=== PATIENT | female | born 1990 | race Caucasian/White ===

== ENCOUNTER 2016-09-25 08:18 | Inpatient (IN) | payer OTHER ==
[~2016-09-25] VITALS: Ht 167.6 cm; Wt 89.8 kg
[2016-09-25 14:42] LABS: *URINE HCG, QUAL NEGATIVE (NEGATIVE)
[2016-09-25 15:00] LABS: *AMPHETAMINE, URINE NEGATIVE (NEGATIVE); *BARBITURATE, URINE NEGATIVE (NEGATIVE); *CANNABINOID, URINE NEGATIVE (NEGATIVE); *COCCAINE, URINE NEGATIVE (NEGATIVE); *OPIATE, URINE NEGATIVE (NEGATIVE); *PHENCYCLIDINE SCREEN,URINE NEGATIVE (NEGATIVE)
--- NOTE | 2016-09-25 15:15 | NUR ---
PRE-ASSESSMENT: Pre-Assessment done at intake office, client is A/O x4, she presents with depressed mood, flat affect, slurred speech. T 97.8, RR 16, BP 122/81, HR 99, spO2 @ 99% on RA, Pain 0/10. She is fully ambulatory. She reports allergy to Alprazolam; Client denies any withdrawal-induced seizure. PMH: depression, anxiety, bipolar disorder, OCD, psychosis. Past surgical Hx: tummy tuck, breast augmentation Medications taken a at home Clonazepam 2mg TID PO modafinil 200mg PO. Vyvanse 100mg daily PO Adderall 30mg BID PO Radha 90-20 mcg tabs PO daily Lamictal 150mg (3 tabs) PO HS Aripiprazole 30mg PO HS PCP Roberta Hardeep Client smokes 1 1/2 pack of cigarrettes daily. Substance use: She started consuming alcohol at age 13 and increasing her intake daily, she reports consuming either 6 pack of beer, 1 bottle of wine or 3 shots of vodka daily. Her longest period of sobriety is when she was 6 years ago. Last drink 2 mojitos and 2 (12 oz) beer 09/24/16 @ 1600. Client started using Prescribed Clonazepam 10mg PO daily for the past 6 months, last used 10mg the morning prior to admission. Prescribed Diazepam 20 mg PO daily for the past 6 months, last used 20mg in divided doses thought out the morning prior to admission. Client verbalized understanding regarding disposal of control substance, vitals Q4h and blood drawn. Client provided urine for drug and test
[2016-09-25] MEDS ORDERED: AMPH30CA3 PO (15:21)
[2016-09-25] MEDS ORDERED: ARIP30TA3 PO (15:21)
[2016-09-25] MEDS ORDERED: LISD50CA2 PO (15:21)
[2016-09-25] MEDS ORDERED: LISD70CA PO (15:21)
[2016-09-25] MEDS ORDERED: LAMO150T2 PO (15:21)
[2016-09-25] MEDS ORDERED: LEVO1TAB45 PO (15:21)
[2016-09-25] MEDS ORDERED: DEXT30TA10 PO (15:21)
[2016-09-25] MEDS ORDERED: MODA200T44 PO (15:21)
--- NOTE | 2016-09-25 15:30 | NUR ---
Admissions Note 25 year old female admitted to [facility] for withdrawal from alcohol and benzodiazepine. Client reports PMH of depression, anxiety, bipolar disorder, OCD, psychosis. Past surgical Hx: tummy tuck(2015), breast augmentation(2015) Client is oriented to unit, educated about protocols and how to work TV and call light in her room. Weight: 198 pounds. Height: 5'6" CIWA : 2 Client is mild intoxicated, skin warm and clammy, skin intact with well healed horizontal scar on bilateral breast and transverse scar @ lower abdomen, small scab on dorsal R hand between thumb and index finger. Bilateral lung clear on auscultation, abdomen soft, non-tender, no edema noted. Clients voice is soft, slurred, she avoids eye contact. Client reports allery to alprazolam. Regular diet ordered. Full code status ordered. Client denies any history of seizures. LBM was 09/25/16, small, brown, soft. She refuses PNA vaccine at this time, stating she is afraid she might get sick because of it. She gives verbal consent for HIV. Client states that she lives with her and three kids. She reports no prior treatments, she has tried to maintain sober at home, but due to shakiness, jittery, irritability and sweats she has not been able to succeed, her longest period of sobriety is she she waas [address] Damon notified of admission. All safety measures instituted. Seizure precaution. Call light within reach. Will continue to monitor.
[2016-09-25] MEDS ORDERED: MIRALAX 17 GM POWD.PACK PO PRN (17:30)
[2016-09-25] MEDS ORDERED: DICYCLOMINE HCL 20 MG TABLET PO PRN (17:30)
[2016-09-25] MEDS ORDERED: MAGNESIUM HYDROXIDE 30 ML LIQUID UDC PO PRN (17:30)
[2016-09-25] MEDS ORDERED: LORAZEPAM 2 MG/1 ML VIAL IM PRN (17:30)
[2016-09-25] MEDS ORDERED: DIAZEPAM 10 MG TABLET PO PRN ×2 (17:30)
[2016-09-25] MEDS ORDERED: MAG HYDROX/AL HYDROX/SIMETH 30 ML LIQUID UDC PO PRN (17:30)
[2016-09-25] MEDS ORDERED: ACETAMINOPHEN 325 MG TABLET PO PRN (17:30)
[2016-09-25] MEDS ORDERED: diphenhydrAMINE 50 MG CAPSULE PO PRN (17:30)
[2016-09-25] MEDS ORDERED: ONDANSETRON 4 MG/2 ML VIAL IM PRN (17:30)
[2016-09-25] MEDS ORDERED: LOPERAMIDE HCL 2 MG CAPSULE PO PRN ×2 (17:30)
[2016-09-25] MEDS ORDERED: THIAMINE HCL 200 MG/2 ML VIAL IM ONE (17:30)
[2016-09-25] MEDS ORDERED: ONDANSETRON ODT 4 MG TAB.RAPDIS SL PRN (17:30)
[2016-09-25] MEDS ORDERED: DIAZEPAM 5 MG TABLET PO PRN (17:30)
[2016-09-25 18:34] LABS: BASOPHILS # (AUTO) 0.1 K/uL (0.0-8.0); BASOPHILS % (AUTO) 0.5 % (0.0-2.0); EOSINOPHILS # (AUTO) 0.3 K/uL (0.0-0.7); EOSINOPHILS % (AUTO) 3.2 % (0.0-7.0); HEMATOCRIT 40.9 % (37-47); HEMOGLOBIN 13.8 G/DL (12.0-16.0); LYMPHOCYTES # (AUTO) 2.3 K/UL (0.8-4.8); LYMPHOCYTES % (AUTO) 21.5 % (20.5-51.5); MEAN CORPUSCULAR HEMOGLOBIN 30.7 UUG (27.0-31.0); MEAN CORPUSCULAR HGB CONC 34 g/dL (32.0-37.0); MONOCYTES # (AUTO) 0.5 K/UL (0.1-1.30); MONOCYTES % (AUTO) 4.9 % (0.0-11.0); NEUTROPHILS # (AUTO) 7.4 K/UL (1.8-8.9); NEUTROPHILS % (AUTO) 69.9 % (38.5-71.5); PLATELET COUNT (AUTO) 209 K/UL (150-450); WHITE BLOOD COUNT (AUTO) 10.6 K/UL (4.0-11.2)
[2016-09-25 18:43] LABS: ALANINE AMINOTRANSFERASE 22 U/L (14-59); ALKALINE PHOSPHATASE 68 U/L (50-136); AMYLASE 40 U/L (25-115); ASPARTATE AMINOTRANSFERASE 15 U/L (15-37); BILIRUBIN,TOTAL 0.2 mg/dL (0.2-1.0); CARBON DIOXIDE 27 mmol/L (21-32); CHLORIDE 105 mmol/L (98-107); CREATININE 0.6 mg/dL (0.6-1.3); GLUCOSE 100 mg/dL (74-106); LIPASE 128 U/L (73-393); MAGNESIUM 1.9 mg/dL (1.8-2.4); POTASSIUM 3.8 mmol/L (3.5-5.1); TOTAL PROTEIN, SERUM 6.7 g/dL (6.4-8.2); UREA NITROGEN, BLOOD 15 mg/dL (7-18)
[2016-09-25 18:49] LABS: ETHANOL < 3 MG/DL (0-0)
[2016-09-25 18:54] LABS: THYROID STIMULATING HORMONE 0.711 mIU/mL (0.358-3.740)
--- NOTE | 2016-09-25 19:18 | NUR ---
END OF SHIFT Will endorse client to incoming nurse, client is in group therapy, She is admitted for alcohol and benzodiazepine withdrawal. She has Valium PRN for CIWA 5-8 5MG q4h, CIWA 9-15 10mg Q4H, CIWA 16 > 20mg Q4H. Client continue to present with depressed mood, flat affect. She is schedule on Ativan taper 5 day to start tomorrow. She reports allergy to alprazolam, full code, regular diet. Seizure precautions. Last CIWA 3 @ 1600. on 3rd of 5 day taper, tolerating well, last COWS 4 @ 1600. Client is fully ambulatory. Client was compliant with 2/3 of group therapy. Adequate PO intake 750mL, void x 1. Call light within reach. Safety measures rendered and all needs met.
--- NOTE | 2016-09-25 20:00 | NUR ---
1999 Patient received standing in her room's doorway, talking with selected patients standing near her room, in the hallway. Patient responds to nurse's greeting and introduction with, " Hi, okay you're my nurse tonight then?" Patient's color is pink and her skin is warm, very slightly moist and intact. Patient is oriented to person, place, day, date, time and her personal situation. Patient's lung sounds are clear bilaterally though somewhat diminished and active bowel sounds are noted X 4 abdominal Quads, per auscultation. Patient states that she has eaten some of her regular diet tray and is taking fluids, " okay" with no gastric issue noted so far. Patient states that she did attend [facility] tonight for awhile, though she is feeling "anxious and a little shakey". Patient denies any pain at this time and she states that she doesn't need anything "right now", but will tell nurse, when she does need something. Patient offers no requests at this time. Vital signs are: 97.6-100-20 127/81, O2 Sat 96%, CIWA 9. Patient is cooperative, polite and verbally appropriate when interacting with nurse, however her affect is both flat and somewhat anxious. Patient was admitted today, 09/25/16 for Alcohol, Diazepam and Clonazepam withdrawal and she is currently on PRN medication, depending upon CIWA score per MD order. Patient noted to have an occasional harsh, dry cough during nurse assess. Patient states, " I don't know where that came from". Bed is locked and in lowest position, bed rails are up X q1 and call light within patient's easy reach
[2016-09-25] MEDS: LAMOTRIGINE 100 MG TABLET PO SCH (21:00)
[2016-09-25] MEDS: GABAPENTIN 300 MG CAPSULE PO SCH (21:00)
[2016-09-25] MEDS: IBUPROFEN 600 MG TABLET PO PRN (21:02)
--- NOTE | 2016-09-25 21:03 | NUR ---
PRN MEDICATIONS: Prn Valium 10 mg p.o. given for CIWA 12 ( shakes, high anxiety, sweats, body aches), Prn Motrin 600 mg p.o. given per request for c/o headache 6/10 pain scale and Prn Benadryl 50 mg p.o. per request for sleep medication.
--- NOTE | 2016-09-25 22:03 | NUR ---
REASSESSMENT PRN MEDICATIONS: Patient is sleeping soundly with eyes closed and respirations deep, regular, unlabored at 12. Patient NOT awakened for CIWA assessment at this time.
--- NOTE | 2016-09-26 04:00 | NUR ---
Patient refused to be awakened for V/S to be done at this time.
[2016-09-26] MEDS: IBUPROFEN 600 MG TABLET PO PRN ×3 (05:13→19:45)
--- NOTE | 2016-09-26 05:13 | NUR ---
PRN MEDICATIONS: Prn Motrin 600 mg p.o. given per c/o headache, 6/10 pain scale and Prn Valium 5 mg p.o. given per c/o shakes, anxiety, CIWA 5.
--- NOTE | 2016-09-26 06:13 | NUR ---
REASSESSMENT PRN MEDICATIONS: Patient is downstairs on hospital patio for smoke break. Unable to assess patient at this time.
--- NOTE | 2016-09-26 06:30 | NUR ---
0630 Patient slept a total of 5.5 hours and she had 1,420 ml p.o. total intake. Voids 2 and no stools this shift.
--- NOTE | 2016-09-26 08:07 | NUR ---
START OF SHIFT Rcvd endorsement from oncoming nurse, client is a 25 y/o female, admitted to [facility] for alcohol and benzodiazepine withdrawal. PRN Valium 10mg for CIWA 9, Valium 4mg for CIWA 5, Motrin x 2 for ZAMORA, Benadryl for inability to sleep, she slept 5.5 hrs. 5 day Ativan taper to start today @ 0900. She has Valium PRN for CIWA 5-8 5MG q4h, CIWA 9-15 10mg Q4H, CIWA 16 > 20mg Q4H. Client presents with anxious mood, flat affect. She is in room, making her bed, she is a/o x 4, she states "I have to do something I am restless." She reports allergy to alprazolam, full code, regular diet. Seizure precautions. . Client is fully ambulatory. Encourage client to increase fluids as tolerated to facilitate detox, and to attend group therapy for skills to maintain sobriety. Call light within reach. Safety measures rendered and all needs met.
[2016-09-26 08:55] VITALS: BP 123/92
[2016-09-26] MEDS ORDERED: 5 DAY TAPER OF LORAZEPAM -SERENITY PROTOCOL PO PRN (09:00)
[2016-09-26] MEDS: AMETHYST PO SCH (09:00)
[2016-09-26] MEDS ORDERED: PATIENT MAY USE OWN MED- MD OK PO SCH (09:00)
[2016-09-26] MEDS: LAMOTRIGINE 100 MG TABLET PO SCH ×2 (09:00→21:00)
[2016-09-26] MEDS ORDERED: TUBERCULIN,PURIF.PROT.DERIV. 5 TU/0.1 ML TEST ID ONE (09:00)
[2016-09-26] MEDS ORDERED: LORAZEPAM 1 MG TABLET PO SCH (09:00)
[2016-09-26] MEDS: DIAZEPAM 10 MG TABLET PO SCH ×4 (09:14→21:13)
[2016-09-26] MEDS: DOCUSATE SODIUM 250 MG CAPSULE PO SCH (09:15)
[2016-09-26] MEDS: THIAMINE HCL 100 MG TABLET PO SCH (09:15)
[2016-09-26] MEDS: GABAPENTIN 300 MG CAPSULE PO SCH ×3 (09:15→21:13)
[2016-09-26] MEDS: MULTIVITAMINS,THERAPEUTIC TABLET PO SCH (09:15)
[2016-09-26] MEDS: FOLIC ACID 1 MG TABLET PO SCH (09:16)
--- NOTE | 2016-09-26 09:20 | NUR ---
Nursing notes Client refused her control pill, stating "I have not been taking the pill for a while." She refused Lamictal 200mg stating "It was prescribed by a CHARGER TESTER and I don't trust her, so I am going to wait until a see a psychologist and then if the doctor thinks I should take it, I will." Risk/benefits discuss, but client still decline the mediations. Charge nurse made aware.
--- NOTE | 2016-09-26 12:27 | NUR ---
PRN Motrin 600mg Client reports ZAMORA all around head, tightness, pain 6/10. Encourage client to increase fluid intake as tolerated. Call light within reach.
[2016-09-26 12:30] VITALS: BP 121/68
--- NOTE | 2016-09-26 13:26 | NUR ---
Reassessment PRN Motrin 600mg Client reports relief from ZAMORA 0/10. Call light within reach.
[2016-09-26] MEDS ORDERED: KETOROLAC TROMETHAMINE 30 MG INJ IM PRN (14:00)
[2016-09-26 16:55] VITALS: BP 129/84
--- NOTE | 2016-09-26 18:56 | NUR ---
END OF SHIFT Will endorse client to incoming nurse, client is in ROOM, A/O X 4, admitted for alcohol and benzodiazepine withdrawal. She started 5 day Valium taper, tolerating well with no ASE, last CIWA 9 @ 1655. Client continue to present with depressed mood, flat affect. PRN Motrin for ZAMORA, noted effective, client refused Lamictal and control pill, Dr Damon and Dr Brody notified. She reports allergy to alprazolam, full code, regular diet. Seizure precautions. Client is fully ambulatory. Client was compliant with group therapy. Adequate PO intake 2000mL, void x 7, stool x 1. Call light within reach. Safety measures rendered and all needs met.
--- NOTE | 2016-09-26 19:46 | NUR ---
PRN Motrin and Zofran Pt reports nausea with one episode of vomiting and headache. PRN Motrin and Zofran administered.
--- NOTE | 2016-09-26 19:50 | NUR ---
START OF SHIFT Received report from day shift nurse. Pt is in her room resting. She is a 25 yo female admitted to [facility] on 09/25 for ETOH and BZD dependence. She is A&O x4 and ambulatory with a steady gait. Allergies to alprazolam, full code status, and on a regular diet. She has a PMH of depression, anxiety, OCD, psychosis, and bipolar. Past surgical history of tummy tuck and breast augmentation. On admission she reported using diazepam 20mg per day, clonazepam 10mg per day, and alcohol 6 beers or 1 bottle of wine or 3 shots of vodka per day. She started a 5 day valium taper today. Pt presents with nausea, one episode of vomiting, hand tremors, moist skin, and headache. Taper due tonight. Fall and seizure precautions in place. Bed is down with call light in reach.
[2016-09-26 20:00] VITALS: BP 120/85
--- NOTE | 2016-09-26 20:46 | NUR ---
PRN Motrin and Zofran reassessment PRN Motrin effective. Pt reports headache is relieved. PRN Zofran somewhat effective. Pt just had one more episode of vomiting. She does report that nausea is mostly relieved. Offered sips of sprite.
[2016-09-26] MEDS ORDERED: FLUOXETINE HCL 20 MG CAPSULE PO SCH (21:00)
[2016-09-26] MEDS ORDERED: ARIPIPRAZOLE 10 MG TABLET PO SCH (21:00)
[2016-09-27] VITALS: BP 102/62
[2016-09-27 04:00] VITALS: BP 114/64
--- NOTE | 2016-09-27 04:00 | NUR ---
0400 CIWA deferred CIWA ordered Q4HWA. Pt is lying in bed resting with eyes closed. Vital signs obtained.
--- NOTE | 2016-09-27 07:10 | NUR ---
END OF SHIFT Report provided to day shift nurse. Pt is lying in bed resting. She is a 25 yo female admitted to [facility] on 09/25 for ETOH and BZD dependence. She is A&O. Allergies to alprazolam, full code status, and on a regular diet. She has a PMH of depression, anxiety, OCD, psychosis, and bipolar. Past surgical history of tummy tuck and breast augmentation. On admission she reported using diazepam 20mg per day, clonazepam 10mg per day, and alcohol 6 beers or 1 bottle of wine or 3 shots of vodka per day. Pt started a 5 day valium taper on 09/26. Nausea improved. PRN Zofran and Motrin administered. Last CIWA was 3. She drank 1355 and slept for 7 hours. Fall and seizure precautions in place. Bed is down with call light in reach.
--- NOTE | 2016-09-27 07:40 | NUR ---
START OF SHIFT Rcvd endorsement from oncoming nurse, client is a 25 y/o female, admitted to [facility] for alcohol and benzodiazepine withdrawal. PRN Zofran for emesis x 2, Motrin for body aches, noted effective. Client slept 7 hrs. 5 day Valium taper (2nd day). Client presents with anxious mood, flat affect. She is walking in the hallway and request her pass to go to the patio to smoke a cigarette, Client is fully ambulatory she is a/o x 4, she states "I have to keep on moving, I feel jittery." fine tremors noted. She denies any N/V/D. She denies SI/HI. She reports allergy to alprazolam, full code, regular diet. Seizure precautions. Encourage client to increase fluids as tolerated to facilitate detox, and to attend group therapy for skills to maintain sobriety. Call light within reach. Will continue to monitor.
[2016-09-27 08:31] VITALS: BP 114/79
[2016-09-27] MEDS ORDERED: LORAZEPAM 1 MG TABLET PO SCH (09:00)
[2016-09-27] MEDS: LAMOTRIGINE 100 MG TABLET PO SCH (09:00)
[2016-09-27] MEDS: AMETHYST PO SCH (09:00)
[2016-09-27] MEDS: FOLIC ACID 1 MG TABLET PO SCH (09:41)
[2016-09-27] MEDS: DOCUSATE SODIUM 250 MG CAPSULE PO SCH (09:41)
[2016-09-27] MEDS: THIAMINE HCL 100 MG TABLET PO SCH (09:41)
[2016-09-27] MEDS: DIAZEPAM 10 MG TABLET PO SCH ×3 (09:41→21:10)
[2016-09-27] MEDS: MULTIVITAMINS,THERAPEUTIC TABLET PO SCH (09:41)
[2016-09-27] MEDS: GABAPENTIN 300 MG CAPSULE PO SCH ×3 (09:41→21:11)
--- NOTE | 2016-09-27 10:06 | NUR ---
Nursing notes Client refused Lamictal stating. "No, I want a new profile, I need a psychiatrist to tell me is okay to take the medication, otherwise I am not going to take it." Primary nurse notified Dr. Damon. Dr. Damon request primary nurse to notify Dr. Brody.
[2016-09-27 12:55] VITALS: BP 133/86
[2016-09-27 14:08] LABS: HEPATITIS B SURFACE AG Negative (Negative)
[2016-09-27] MEDS: NICOTINE POLACRILEX 4 MG GUM-PK OF TEN BC PRN ×4 (14:29→21:19)
--- NOTE | 2016-09-27 14:29 | NUR ---
PRN Nicotine 4mg gum given for cravings. Will continue to monitor.
--- NOTE | 2016-09-27 15:29 | NUR ---
Reassessment PRN Nicotine 4mg gum effective, client did not smoke cigarettes for the last hour.
--- NOTE | 2016-09-27 16:43 | NUR ---
PRN Nicotine 4mg gum given for cravings. Will continue to monitor.
[2016-09-27 16:55] VITALS: BP 138/92
--- NOTE | 2016-09-27 17:00 | NUR ---
Dr. Brody notified of client's refusal to take Abilify and Prozac last night and Lamictal this morning.
--- NOTE | 2016-09-27 17:28 | NUR ---
END OF SHIFT and Reassessment of Nicotine Gum 4mg Endorsed client to incoming nurse, client continues on 2 of 5 day Valium taper, tolerating well with no ASE. PRN Nicotine gum 4mg x 3, effective. Last CIWA 9 @ 1600. Client continues to be tachycardic, she is asymptomatic, Dr. Damon notified, NNO at this time. Client continues to present with depressed mood, flat affect, and fine tremors. She reports stomach cramps, fatigue, and restless legs. Client refused to take her psych meds, Dr. Ronn jose and Prozac, Dr. Nelson arriaga Lamictal. Client was compliant with group therapy. Adequate PO intake 2455mL, void x 4. Call light within reach. Safety measures rendered and all needs met.
--- NOTE | 2016-09-27 17:43 | NUR ---
Reassessment PRN Nicotine 4mg gum effective, client did not smoke cigarettes for the last hour.
--- NOTE | 2016-09-27 18:28 | NUR ---
PRN Nicotine 4mg gum given for cravings. Will continue to monitor.
--- NOTE | 2016-09-27 19:00 | NUR ---
START OF SHIFT NOTE Patient endorsed by tool and die technician nurse. Report received. Patient is a 25 year old female admitted to [facility] on 09/25/2016 for Benzodiazepines and Alcohol dependence, placed on 5 day Valium taper since 09/26/2016, which tolerated well without ASE. Patient remains compliant with treatment, medications, and diet regime. Patient reports Allergies to Alprazolam. Patient is on Full Code, is on Regular Diet, is on Fall and Seizures Precautions. Patient denies History of Seizures. Past Medical History: Anxiety, Depression, OCD, Psychosis, Bipolar Disorder, Substance abuse, Tobacco dependence. Surgical History: Tummy Tuck, Breast Augmentation. Patient reports substance use: Alcohol: " every day 6 (12 oz each) beer or 1 bottle wine, or 3 shots of vodka since 2004. Last used 2 mojitos/2(12 oz beer) on 09/24/2016 at 1000". Diazepam PO: "20 mg daily since 03/2016. Last used AM prior admission - throug out". Clonazepam PO: "10 mg daily since 09/25/2016 Last used AM prior admission - throug out". Patient denies Treatment History. Upon endorsement, patient is in the room. Patient is alert and oriented x4. VS WNL . Patient 's stable at this time. CIWA 8. Patient presented with anxiety, agitation, nervousness, tremors, sweats, and restlessness. Respirations unlabored and even. Lungs Sounds are clear bilaterally. Bowel Sounds active in all x4 quadrants. Last Bowel Movement was "09/27/16 at 1400". Skin is warm and dry to touch. Patient has healed scabs on dorsal Right hand and between right thumb and index. Encouraged fluids as tolerated. All needs met. Safety measures on place. Call light within reach, bed in lowest position and locked, padded rails up bilaterally rails up bilaterally. Will continue to monitor closely.
[2016-09-27 20:00] VITALS: BP 138/89
[2016-09-27] MEDS: QUETIAPINE FUMARATE 100 MG TABLET PO SCH (21:10)
--- NOTE | 2016-09-27 21:19 | NUR ---
PRN Nicotine 4mg gum given as ordered. Will continue to monitor.
[2016-09-28] VITALS: BP 110/73
[2016-09-28 04:00] VITALS: BP 100/62
[2016-09-28] MEDS: IBUPROFEN 600 MG TABLET PO PRN ×2 (04:02→12:29)
[2016-09-28] MEDS: NICOTINE POLACRILEX 4 MG GUM-PK OF TEN BC PRN ×2 (04:02→11:01)
--- NOTE | 2016-09-28 04:02 | NUR ---
PRN MOTRIN 600 MG 1TAB PO AND PRN NICOTINE 4 MG GUM ADMINISTRATION Patient c/o legs pain and asked aid Patient was assessed. Pain level "6/10" PRN Motrin 600 mg 1 tab PO administrated as ordered with full glass of water Patient tolerated well. Nicotine 4mg gum administrated for cravings as ordered. All needs met. Safety measures on place. Call light within reach, bed in lowest position and locked, padded rails up bilaterally rails up bilaterally. Will continue to monitor closely.
--- NOTE | 2016-09-28 05:02 | NUR ---
RE-ASSESSMENT Patient is sleeping. RR: 14. Respirations are unlabored and even. PRN Motrin PO and PRN Nicotine 4mg gum administrated to patient were effective. All needs met. Safety measures on place. Call light within reach, bed in lowest position and locked, padded rails up bilaterally rails up bilaterally.
--- NOTE | 2016-09-28 07:07 | NUR ---
END OF SHIFT NOTE Patient endorsed to dayshift nurse in stable condition. Report given. Patient is a 25 year old female admitted to [facility] on 09/25/2016 for Benzodiazepines and Alcohol dependence, placed on 5 day Valium taper since 09/26/2016, which tolerated well without ASE. Patient remains compliant with treatment, medications, and diet regime. Patient reports Allergies to Alprazolam. Patient is on Full Code, is on Regular Diet, is on Fall and Seizures Precautions. Patient denies History of Seizures. Past Medical History: Anxiety, Depression, OCD, Psychosis, Bipolar Disorder, Substance abuse, Tobacco dependence. Surgical History: Tummy Tuck, Breast Augmentation. Patient reports substance use: Alcohol: " every day 6 (12 oz each) beer or 1 bottle wine, or 3 shots of vodka since 2004. Last used 2 mojitos/2(12 oz beer) on 09/24/2016 at 1000". Diazepam PO: "20 mg daily since 03/2016. Last used AM prior admission - throughout". Clonazepam PO: "10 mg daily since 09/25/2016 Last used AM prior admission - throughout". Patient denies Treatment History. Upon endorsement, patient is in the room. Patient is alert and oriented x4. VS at 0400: T: 97.9; BP: 100/62; HR: 93; RR: 18; O2 SAT: 100%, pain level:"6/10". Patient 's stable during knotter hand. Respirations unlabored and even. Patient denies SOB and chest pain. Skin is warm and dry to touch. Patient has healed scabs on dorsal of right hand and between right thumb and index. Last CIWA decreased from 8 to 3 at 0400. Patient presented last night with anxiety, agitation, nervousness, tremors, sweats, and restlessness. PRN Nicotine 4mg gum for cravings and PRN Motrin 600 mg I tab PO for legs pain were effective. Patient denies SI/HI. Patient slept 7 hours 45 minutes, intake 1,355 ml, voided x2 . All needs met. Safety measures on place. Call light within reach, bed in lowest position and locked, padded rails up bilaterally rails up bilaterally.
--- NOTE | 2016-09-28 07:08 | NUR ---
Start of Shift Notes: Received patient in her room. Awake, alert and verbally responsive. Able to make needs known. Oriented x 4. Respirations even and unlabored. NO SOB noted. Skin warm and moist to touch. Appears with mild anxiety, agitation and facial flushing. Gross tremors also noted to BUE. Abdomen soft and non-distended with (+) BS in all 4 quadrants. No complains of N/V/D or constipation noted. Bladder non-distended. No complains of dysuria. Ambulatory ad enrico with steady gait. Patient is a 26 year old female admitted for ETOH and BZO dependence who was placed on a 5-day Valium taper as ordered. No adverse reactions noted. Has past medical hx of anxiety, depression, OCD, psychosis and bipolar disorder. Prior to admission, patient was using 6 (12oz) beer, 1 bottle of wine and 2 shots of vodka, 20 mg of Valium and 10 mg of Klonopin. Educated patient on her current plano of care for the day and her medication regimen. Encouraged oral fluid intake and encouraged group participation to learn new skills to prevent relapse. Will continue to monitor closely. Slept for 7 hours. Last CIWA 3.
[2016-09-28 08:00] VITALS: BP 97/63
[2016-09-28] MEDS ORDERED: LORAZEPAM 1 MG TABLET PO SCH (09:00)
[2016-09-28] MEDS: AMETHYST PO SCH (09:00)
[2016-09-28] MEDS: DIAZEPAM 5 MG TABLET PO SCH ×4 (09:07→20:37)
[2016-09-28] MEDS: GABAPENTIN 300 MG CAPSULE PO SCH ×3 (09:07→20:37)
[2016-09-28] MEDS: DOCUSATE SODIUM 250 MG CAPSULE PO SCH (09:07)
[2016-09-28] MEDS: FOLIC ACID 1 MG TABLET PO SCH (09:07)
[2016-09-28] MEDS: MULTIVITAMINS,THERAPEUTIC TABLET PO SCH (09:07)
[2016-09-28] MEDS: THIAMINE HCL 100 MG TABLET PO SCH (09:07)
--- NOTE | 2016-09-28 09:08 | NUR ---
Radha PO not administered: Radha PO refused by the patient at this time. Educated patient on the risk and benefits but patient still refused. Offered x3. Respected patient's rights. Will continue to monitor and offer support.
--- NOTE | 2016-09-28 11:01 | NUR ---
Nicotine Gum 4mg given: Patient requested for nicotine gum for smoking cessation. Smoking cessation education provided.
[2016-09-28 12:00] VITALS: BP 120/75
--- NOTE | 2016-09-28 12:29 | NUR ---
Motrin 600 mg PO given: Patient complained of 5/10 headache. Unable to be relieved with non-pharmacological interventions. Medicated patient with Motrin 600 mg PO as ordered. Will monitor for effectiveness.
--- NOTE | 2016-09-28 13:29 | NUR ---
Re-assessment: Per patient, PRN Motrin has been effective in reducing patient's headache. PL 03/23.
[2016-09-28 16:00] VITALS: BP 124/82
--- NOTE | 2016-09-28 19:02 | NUR ---
End of Shift Notes: Patient continues to be on 5-day Valium taper as ordered. Patient is tolerating the taper well. No adverse reactions noted. No delayed reactions noted. VS monitored closely q 4 hours. No signficant abnormalities noted. Withdrawal symptoms were closely monitored. Patient presented with initial CIWA 7. Patient presented with anxiety, agitation, and fine tremors. Per patient, Valium has been helping her with her withdrawal symptoms. Last CIWA 3. Refused to take Radha med in AM. Education provided. Nicotine gum given at 1101 for smoking cessation with help. Compliant with care and treatment. Able to participate in group and activities despite her withdrawal symptoms. Oral fluids encouraged. All needs met and attended. Continues to be on fall and seizure precautions. Will continue to monitor closely.
[2016-09-28 20:00] VITALS: BP 130/85
--- NOTE | 2016-09-28 20:00 | NUR ---
Start of Shift Pt is a 25 year old female admitted for ETOH/Benzo dependence, placed on 5 day Valium taper. Pt reported using Beer 6 (12 oz), 1 bottle wine or 3 shots of Vodka daily, Diazepam 20 mg/daily and Clonazepam 10gm/daily. PMH: depression, anxiety, OCD, psychosis, bipolar disorder. Past surgical Hx: tummy tuck, breast augmentation. Pt is allergic to Alprazolam, regular diet, fall/seizure precautions - no hx of seizures and full code. Upon assessment, pt presents with anxiety, reports lower back aches, skin noted with moderate sweat, respirations even/unlabored, denies SOB/chest pain, denies n/v/d, bowel sounds active x4, abdomen soft. Safety measures in place, call light within reach, side rails up x2, bed locked and in low position. Will continue to monitor.
[2016-09-28] MEDS: QUETIAPINE FUMARATE 100 MG TABLET PO SCH (20:38)
[2016-09-29] VITALS: BP 107/65
--- NOTE | 2016-09-29 | NUR ---
Vital Signs BP 107/65, pulse 95, resp 14, SpO2 96%, Temp 97.9, no pain rate 0/10 CIWA Deferred d/t pt sleeping, to assess while is awake as ordered. Safety measures in place. Will continue to monitor.
[2016-09-29 04:00] VITALS: BP 119/74
--- NOTE | 2016-09-29 05:04 | NUR ---
PRN Administration Pt reported feeling anxious, requested aid. Vistaril 50mg PRN administered. Safety measures in place. Will continue to monitor.
[2016-09-29] MEDS: HYDROXYZINE PAMOATE 25 MG CAPSULE PO PRN (05:05)
[2016-09-29] MEDS ORDERED: HYDROXYZINE PAMOATE 25 MG CAPSULE ONE (05:14)
--- NOTE | 2016-09-29 06:04 | NUR ---
PRN Reassessment Upon reassessment, pt is in room watching television. No s/s of acute distress. Needs met, safety measures in place, will continue to monitor.
--- NOTE | 2016-09-29 07:00 | NUR ---
End of Shift Pt is a 26 year old female admitted for ETOH/Benzo dependence, placed on 5 day Valium taper. Pt reported using Beer 6 (12 oz), 1 bottle wine or 3 shots of Vodka daily, Diazepam 20 mg/daily and Clonazepam 10gm/daily. PMH: depression, anxiety, OCD, psychosis, bipolar disorder. Past surgical Hx: tummy tuck, breast augmentation. Pt is allergic to Alprazolam, regular diet, fall/seizure precautions - no hx of seizures and full code. During shift, pt presented with anxiety, reports lower back aches, skin noted with moderate sweat - scheduled taper medications administered, effective in management of s/s of withdrawal as reported per pt, CIWA 3. Pt slept for 6 hours, intake of 1350 ml PO, voids x2 and stool x0 . Safety measures in place, call light within reach, side rails up x2, bed locked and in low position. Endorsed to day shift nurse.
--- NOTE | 2016-09-29 07:15 | NUR ---
Start of Shift Report from the night: pt is a 26 y/o female here for Etoh r/t wine, vodka and beer daily for 12 years and Benzo's r/t Diazepam 20mg PO daily & Clonazepam 10mg PO daily both for 6 months; 5 day Valium taper ordered. Pt is a full code, regular diet, alprazolam fall and seizure precautions ordered. HHx: depression, anxiety, OCD, psychosis and bipolar and cosmetic surgery. V/S stable yet HR 100's at times. PRN Vistaril given this morning for anxiety. Skin is intact. No new orders or abnormal labs endorsed to me. Last CIWA 3. Pt is alert and awake in the room. Will cont. to monitor the pt.
[2016-09-29 08:00] VITALS: BP 110/77
[2016-09-29] MEDS: AMETHYST PO SCH (08:24)
[2016-09-29] MEDS: DOCUSATE SODIUM 250 MG CAPSULE PO SCH (08:24)
[2016-09-29] MEDS: GABAPENTIN 300 MG CAPSULE PO SCH ×3 (08:25→21:11)
[2016-09-29] MEDS: MULTIVITAMINS,THERAPEUTIC TABLET PO SCH (08:25)
[2016-09-29] MEDS: DIAZEPAM 5 MG TABLET PO SCH ×3 (08:25→21:11)
[2016-09-29] MEDS: FOLIC ACID 1 MG TABLET PO SCH (08:26)
[2016-09-29] MEDS: THIAMINE HCL 100 MG TABLET PO SCH (08:26)
[2016-09-29] MEDS ORDERED: LORAZEPAM 1 MG TABLET PO SCH (09:00)
[2016-09-29 12:00] VITALS: BP 124/81
[2016-09-29] MEDS: NICOTINE POLACRILEX 4 MG GUM-PK OF TEN BC PRN ×2 (15:27→16:52)
[2016-09-29 16:00] VITALS: BP 122/92
--- NOTE | 2016-09-29 18:49 | NUR ---
End of Shift Report to the night: pt is a 26 y/o female here for Etoh r/t wine, vodka and beer daily for 12 years and Benzo's r/t Diazepam 20mg PO daily & Clonazepam 10mg PO daily both for 6 months; 5 day Valium taper ordered. Pt is a full code, regular diet, alprazolam fall and seizure precautions ordered. HHx: depression, anxiety, OCD, psychosis and bipolar and cosmetic surgery. Features symmetrical, PERRLA 3mm, no ZAMORA or dizziness noted. Pt denies chest pain. No SOB or respiratory distress during my shift. V/S stable yet HR 113 r/t anxiety. Skin is intact. No N/V/D noted with last BM today and pt refused to have Colace and control medication during my shift. PRN Nicotine gum given twice during my shift and recommended to night nurse to f/u with Dr. Damon re: pt request of Nicotine patch to start tomorrow and for the pt to having something to help with insomnia since the trazodone was ineffective last night and Dr. Brody states to have the pt to keep the same dose until tomorrow. No hallucinations, delusions or suicidal ideations notes. Pt attended group therapy and activities during my shift. Last CIWA 4.
[2016-09-29 20:00] VITALS: BP 119/75
--- NOTE | 2016-09-29 20:00 | NUR ---
Start of Shift Pt is a 25 year old female admitted for ETOH/Benzo dependence, placed on 5 day Valium taper. Pt reported using Beer 6 (12 oz), 1 bottle wine or 3 shots of Vodka daily, Diazepam 20 mg/daily and Clonazepam 10gm/daily. PMH: depression, anxiety, OCD, psychosis, bipolar disorder. Past surgical Hx: tummy tuck, breast augmentation. Pt is allergic to Alprazolam, regular diet, fall/seizure precautions - no hx of seizures and full code. Upon assessment, pt presents with clammy skin, reports mild chills, and aches in lower legs, respirations even/unlabored, denies SOB/chest pain, denies n/v/d, bowel sounds active x4, abdomen soft. Safety measures in place, call light within reach, side rails up x2, bed locked and in low position. Will continue to monitor.
[2016-09-29] MEDS: QUETIAPINE FUMARATE 100 MG TABLET PO SCH (21:11)
[2016-09-30] VITALS: BP 109/64
[2016-09-30] MEDS: HYDROXYZINE PAMOATE 25 MG CAPSULE PO PRN (01:00)
[2016-09-30] MEDS: IBUPROFEN 600 MG TABLET PO PRN (01:00)
--- NOTE | 2016-09-30 01:00 | NUR ---
PRN Administration Pt reports anxiety and headache, rated 6/10. Vistaril 50mg PRN and Motrin 600mg PRN administered. Safety measures in place. Will continue to monitor.
--- NOTE | 2016-09-30 02:00 | NUR ---
PRN Reassessment Upon reassessment, pt is sleeping, respirations even/unlabored. No s/s of acute distress, No reports of a headaches. Safety measures in place. Will continue to monitor.
--- NOTE | 2016-09-30 04:00 | NUR ---
Pt refused to be woken up for 0400 Vital Signs CIWA deferred d/t pt sleeping - to assess while pt is awake as ordered. Safety measures in place. Will continue to monitor
--- NOTE | 2016-09-30 07:00 | NUR ---
End of Shift Pt is a 26 year old female admitted for ETOH/Benzo dependence, placed on 5 day Valium taper. Pt reported using Beer 6 (12 oz), 1 bottle wine or 3 shots of Vodka daily, Diazepam 20 mg/daily and Clonazepam 10gm/daily. PMH: depression, anxiety, OCD, psychosis, bipolar disorder. Past surgical Hx: tummy tuck, breast augmentation. Pt is allergic to Alprazolam, regular diet, fall/seizure precautions - no hx of seizures and full code. During shift, pt presented with clammy skin, reports mild chills, and aches in lower legs scheduled taper medications administered, effective in management of s/s of withdrawal as reported per pt, CIWA 4. No PRN medications administered. Pt slept for 8 hours, intake of 1000 ml PO, voids x2, stool x0. Safety measures in place, call light within reach, side rails up x2, bed locked and in low position. Endorsed to day shift nurse. Addendum: 09/30/16 at 0708 by EMPERATRIZ DOWNEY RN CORRECTION: Vistaril 50mg PRN and Motrin 600mg PRN administered, for anxiety and headache, effective.
--- NOTE | 2016-09-30 07:30 | NUR ---
Start of Shift Report from the night: pt is a 26 y/o female here for Etoh r/t wine, vodka and beer daily for 12 years and Benzo's r/t Diazepam 20mg PO daily & Clonazepam 10mg PO daily both for 6 months; 5 day Valium taper ordered. Pt is a full code, regular diet, alprazolam fall and seizure precautions ordered. HHx: depression, anxiety, OCD, psychosis and bipolar and cosmetic surgery. V/S stable yet HR 100's at times r/t anxiety so PRN Vistaril & Motrin given last night. Skin is intact. No new orders or abnormal labs endorsed to me. Last CIWA 4. Pt is alert and awake in the room getting ready to go smoke. Will cont. to monitor the pt.
[2016-09-30 08:00] VITALS: BP 108/80
[2016-09-30] MEDS ORDERED: LORAZEPAM 1 MG TABLET PO SCH (09:00)
[2016-09-30] MEDS ORDERED: NICOTINE 7 MG/24HR PATCH TD SCH (09:00)
[2016-09-30] MEDS: DOCUSATE SODIUM 250 MG CAPSULE PO SCH (09:00)
[2016-09-30] MEDS: AMETHYST PO SCH (09:00)
[2016-09-30] MEDS: DIAZEPAM 5 MG TABLET PO SCH ×2 (09:05→21:25)
[2016-09-30] MEDS: THIAMINE HCL 100 MG TABLET PO SCH (09:06)
[2016-09-30] MEDS: MULTIVITAMINS,THERAPEUTIC TABLET PO SCH (09:06)
[2016-09-30] MEDS: GABAPENTIN 300 MG CAPSULE PO SCH ×3 (09:06→21:24)
[2016-09-30] MEDS: FOLIC ACID 1 MG TABLET PO SCH (09:06)
[2016-09-30] MEDS ORDERED: diphenhydrAMINE 50 MG CAPSULE PO PRN (11:15)
[2016-09-30 12:00] VITALS: BP 116/79
[2016-09-30] MEDS: NICOTINE 21 MG/24HR PATCH TD SCH (12:26)
--- NOTE | 2016-09-30 12:45 | NUR ---
New Orders & Late Medication Administration New order for Toradol PRN for pain, increased dose of Seroquel for insomnia and Nicotine patch modified to 21mg once per day and to d/c the nicotine gum. Nicotine patch given lat since pt was in group and out smoking. Will cont. monitor the pt.
[2016-09-30 16:00] VITALS: BP 133/86
--- NOTE | 2016-09-30 19:17 | NUR ---
End of Shift Report to the night: pt is a 26 y/o female here for Etoh r/t wine, vodka and beer daily for 12 years and Benzo's r/t Diazepam 20mg PO daily & Clonazepam 10mg PO daily both for 6 months; 5 day Valium taper ordered. Pt is a full code, regular diet, alprazolam fall and seizure precautions ordered. HHx: depression, anxiety, OCD, psychosis and bipolar and cosmetic surgery. Features symmetrical, PERRLA 3mm, no ZAMORA or dizziness noted. Pt denies chest pain. No SOB or respiratory distress during my shift. V/S stable yet HR 113 r/t anxiety. Skin is intact. No N/V/D noted with last BM today and pt refused to have Colace and control medication again during my shift. New orders for increased dose of Nicotine patch 21mg, d/c'd the nicotine gum, Toradol for pain with none given during my shift and increased trazodone dose starting tonight HS. No hallucinations, delusions or suicidal ideations notes. Pt attended group therapy and activities during my shift. Last CIWA 3.
[2016-09-30 20:00] VITALS: BP 140/91
--- NOTE | 2016-09-30 20:00 | NUR ---
Start of Shift Pt is a 25 year old female admitted for ETOH/Benzo dependence, placed on 5 day Valium taper. Pt reported using Beer 6 (12 oz), 1 bottle wine or 3 shots of Vodka daily, Diazepam 20 mg/daily and Clonazepam 10gm/daily. PMH: depression, anxiety, OCD, psychosis, bipolar disorder. Past surgical Hx: tummy tuck, breast augmentation. Pt is allergic to Alprazolam, regular diet, fall/seizure precautions - no hx of seizures and full code. Upon assessment, pt reports feeling anxious due to up coming discharge, and mild muscle/joint aches throughout body, respirations even/unlabored, denies SOB/chest pain, denies n/v/d, bowel sounds active x4, abdomen soft. Safety measures in place, call light within reach, side rails up x2, bed locked and in low position. Will continue to monitor.
[2016-09-30] MEDS: QUETIAPINE FUMARATE 100 MG TABLET PO SCH (21:25)
[2016-10-01] VITALS: BP 121/74
--- NOTE | 2016-10-01 | NUR ---
Vital Signs BP 121/74, pulse 82, resp 16, SpO2 97%, Temp 98, no pain rate 0/10 CIWA Deferred d/t pt sleeping, to assess while is awake as ordered. Safety measures in place. Will continue to monitor.
--- NOTE | 2016-10-01 07:00 | NUR ---
End of Shift Pt is a 26 year old female admitted for ETOH/Benzo dependence, placed on 5 day Valium taper. Pt reported using Beer 6 (12 oz), 1 bottle wine or 3 shots of Vodka daily, Diazepam 20 mg/daily and Clonazepam 10gm/daily. PMH: depression, anxiety, OCD, psychosis, bipolar disorder. Past surgical Hx: tummy tuck, breast augmentation. Pt is allergic to Alprazolam, regular diet, fall/seizure precautions - no hx of seizures and full code. During shift, pt reported feeling anxious due to up coming discharge, and mild muscle/joint aches throughout body, scheduled taper medications administered, effective in management of s/s of withdrawal as reports per pt, CIWA 3. No PRNs administered during shift. Pt slept for 7 hours, intake of 1500 ml PO, voids x3 and stool x0. Safety measures in place, call light within reach, side rails up x2, bed locked and in low position. Endorsed to day shift nurse.
--- NOTE | 2016-10-01 07:30 | NUR ---
START OF SHIFT NOTE Patient is alert and orientated X 4. Patient is awake and walking around unit this morning, mood is uplifted. Vital signs are stable this morning WNL. patient is on a 5 day Valium taper tolerated well. Patient was given Vistaril and Motrin last night with effectiveness. Last CIWA was a 3 per night nurse, patient slept 7 hours last night. All safety measures in place, call light within reach, bed locked and in lowest position. Will continue to monitor patient.
[2016-10-01 08:00] VITALS: BP 129/86
[2016-10-01] MEDS: DOCUSATE SODIUM 250 MG CAPSULE PO SCH (08:53)
[2016-10-01] MEDS: THIAMINE HCL 100 MG TABLET PO SCH (08:53)
[2016-10-01] MEDS: FOLIC ACID 1 MG TABLET PO SCH (08:53)
[2016-10-01] MEDS: GABAPENTIN 300 MG CAPSULE PO SCH ×3 (08:53→21:00)
[2016-10-01] MEDS: MULTIVITAMINS,THERAPEUTIC TABLET PO SCH (08:53)
--- NOTE | 2016-10-01 08:57 | NUR ---
Refuse Medication patient is refusing to take Radha and Nicotine patch.
[2016-10-01] MEDS: NICOTINE 21 MG/24HR PATCH TD SCH (09:00)
[2016-10-01] MEDS: AMETHYST PO SCH (09:00)
[2016-10-01 12:00] VITALS: BP 137/97
[2016-10-01] MEDS ORDERED: GABA-534 PO (13:31)
[2016-10-01] MEDS ORDERED: QUET100T PO (13:31)
[2016-10-01] MEDS ORDERED: HYDR-3895 PO (13:31)
[2016-10-01] MEDS: IBUPROFEN 600 MG TABLET PO PRN (14:35)
--- NOTE | 2016-10-01 14:37 | NUR ---
PRN MOTRIN GIVEN Patient complaining of headache. Pain reported 6 out of 10. Encouraged patient to drink fluids. Will continue to monitor.
--- NOTE | 2016-10-01 15:10 | NUR ---
JIANRIN REASSESSMENT Patient reports headache has reduced. pain 3 out of 10 now. Will continue to monitor patient.
[2016-10-01 16:00] VITALS: BP 130/54
--- NOTE | 2016-10-01 18:46 | NUR ---
END OF SHIFT REPORT Patient is alert and orientated X 4. Vital signs remain within normal limits throughout the day. Last CIWA was a 4. Patient completed a 5 day Valium taper and tolerated great. Patient was given Motrin PRN for a headache with effectiveness. Patient has been compliant with MD orders and medication treatment. Patient participated in group activities today and socialized around the unit. Plan is for patient to be discharge tomorrow to [facility]. Patient states, She is ready for treatment after this. All safety measures in place, call light within reach, bed locked and in lowest position. All needs have been met. Will continue to monitor patient until endorse to oncoming nurse.
[2016-10-01 18:47] LABS: *AMPHETAMINE, URINE NEGATIVE (NEGATIVE); *BARBITURATE, URINE NEGATIVE (NEGATIVE); *CANNABINOID, URINE NEGATIVE (NEGATIVE); *COCCAINE, URINE NEGATIVE (NEGATIVE); *OPIATE, URINE NEGATIVE (NEGATIVE); *PHENCYCLIDINE SCREEN,URINE NEGATIVE (NEGATIVE)
[2016-10-01 20:00] VITALS: BP 115/85
--- NOTE | 2016-10-01 20:00 | NUR ---
START OF SHIFT NOTE PATIENT ALERT AND ORIENTED X 4. RESPIRATION EVEN AND UNLABORED. PATIENT STATES SHE'S ALRIGHT AND SHE'S LEAVING TOMORROW. DENIES ANY PAIN . NO N/V. RECEIVED REPORT FROM DAY SHIFT NURSE. PATIENT IS 25 YEAR OLD FEMALE, ADMITTED FOR ALCOHOL AND BENZO DEPENDENCE. PATIENT COMPLETED THE 5 DAY VALIUM TAPER. PATIENT IS MEDICALLY CLEARED TO BE DISCHARGED TOMORROW. PATIENT WAS GIVEN PRN MOTRIN. LAST CIWA 4. NO SEIZURE HISTORY. ON FALL PRECAUTION. SAFETY MEASURES IN PLACE. CALL LIGHT IN REACH. WILL CONTINUE TO MONITOR.
[2016-10-01] MEDS: QUETIAPINE FUMARATE 100 MG TABLET PO SCH (21:00)
--- NOTE | 2016-10-02 | NUR ---
CIWA/VS PATIENT ASLEEP. CIWA UNABLE TO ASSESS. NO S/S OF DISTRESS. SAFETY MEASURES IN PLACE. CALL LIGHT IN REACH. WILL CONTINUE TO MONITOR.
--- NOTE | 2016-10-02 04:00 | NUR ---
CIWA/VS PATIENT ASLEEP. CIWA UNABLE TO ASSESS. NO S/S OF DISTRESS. SAFETY MEASURES IN PLACE. CALL LIGHT IN REACH. WILL CONTINUE TO MONITOR.
--- NOTE | 2016-10-02 07:24 | NUR ---
END OF SHIFT NOTE PATIENT REMAIN ALERT AND ORIENTED X 4. RESPIRATION EVEN AND UNLABORED. PATIENT STATES SHE'S ALRIGHT AND SHE'S LEAVING TODAY. DENIES ANY PAIN . NO N/V. PATIENT IS 25 YEAR OLD FEMALE, ADMITTED FOR ALCOHOL AND BENZO DEPENDENCE. PATIENT COMPLETED THE 5 DAY VALIUM TAPER. PATIENT IS MEDICALLY CLEARED TO BE DISCHARGED TODAY. PATIENT DID NOT REQUIRE ANY PRN MEDICATION. ON FALL PRECAUTION. SAFETY MEASURES IN PLACE. CALL LIGHT IN REACH. WILL CONTINUE TO MONITOR. SLEPT 3 HOURS. FLUID INTAKE 1,855 ML. VOIDED X 3 . BM X 1. LAST CIWA 1 .
--- NOTE | 2016-10-02 07:28 | NUR ---
START OF SHIFT NOTE Patient is alert and orientated X 4. Vital signs stable this morning. Patient is up walking around the unit this morning getting ready to be discharged. Patient seems to be in good spirts about leaving. Patient slept 3 hours last night according to night nurse with last CIWA 1 no prns given last night. All safety measures in place. Will continue to monitor.
[2016-10-02] MEDS: MULTIVITAMINS,THERAPEUTIC TABLET PO SCH (08:07)
[2016-10-02] MEDS: FOLIC ACID 1 MG TABLET PO SCH (08:07)
[2016-10-02] MEDS: DOCUSATE SODIUM 250 MG CAPSULE PO SCH (08:07)
[2016-10-02] MEDS: THIAMINE HCL 100 MG TABLET PO SCH (08:07)
[2016-10-02] MEDS: GABAPENTIN 300 MG CAPSULE PO SCH (08:07)
[2016-10-02 08:16] VITALS: BP 117/90
[2016-10-02] MEDS: NICOTINE 21 MG/24HR PATCH TD SCH (08:38)
[2016-10-02] MEDS: AMETHYST PO SCH (08:38)
--- NOTE | 2016-10-02 09:30 | NUR ---
DISCHARGE NOTE Patient is in stable condition. Vital signs WNL, patient is alert and orientated X4, skin intact, patient denies any suicidal or homicidal ideations. All discharge paperwork completed dated and signed. Patient educated about discharge instructions, what to do after discharge, when to contact MD as well as the s/s reportable to MD. Patient verbalized understanding. Patient last CIWA 2. Patient was discharged from [facility] on 10/02/16 at 0930. Patient left the building with all of her belongings an prescriptions. MD has been contacted and notified of patients discharge.
== END 2016-10-02 09:35 | DRG 895 ==
LOC: SRC 14:17 → EDBD 14:17
PROVIDERS: ADMIT Internal Medicine; ATTEND Internal Medicine
PROC: HZ2ZZZZ Detoxification Services for Substance Abuse Treatment (ICD-10-PCS; principal; 2016-09-25)
PROC: HZ41ZZZ Group Counseling for Substance Abuse Treatment, Behavioral (ICD-10-PCS; principal; 2016-09-25)
PROC: HZ31ZZZ Individual Counseling for Substance Abuse Treatment, Behavioral (ICD-10-PCS; 2016-09-28)
DX: F10.230 Alcohol dependence with withdrawal, uncomplicated (principal); F31.4 Bipolar disorder, current episode depressed, severe, without psychotic features; F13.230 Sedative, hypnotic or anxiolytic dependence with withdrawal, uncomplicated; Y90.9 Presence of alcohol in blood, level not specified; Z91.19 Patient's noncompliance with other medical treatment and regimen; Z88.8 Allergy status to other drugs, medicaments and biological substances; G47.00 Insomnia, unspecified; F17.200 Nicotine dependence, unspecified, uncomplicated; F42.9 Obsessive-compulsive disorder, unspecified; Z79.899 Other long term (current) drug therapy
CPT/HCPCS: 36415; 70030-TC; 80307; 80346; 83690; 83735; 84443; 84703; 85025; 86580; 86592; 86705; 86803; 87340; 87806; A9150; G0480; Q0162; Q0163